=== PATIENT | male | born 1935 | race Caucasian/White ===

== ENCOUNTER 2016-06-10 17:19 | Inpatient (IN) | payer MEDICARE, BC ==
--- NOTE | 2016-06-10 17:52 | EDPRACDOC ---
- General Information Chief Complaint: Skin Cellulitis Stated Complaint: CELLULITIS Information Source: Patient Mode of Arrival:: Ambulance Home Medications: Home Medications Aspirin (Enteric Coated) [Ecotrin] 81 mg PO DAILY 06/10/16 Furosemide [Lasix] 20 mg PO DAILY 06/10/16 Meloxicam [Mobic] 7.5 mg PO DAILY 06/10/16 Tramadol HCl [Ultram] 50 mg PO Q4-6H PRN 06/10/16 Allergies/Adverse Reactions: Allergies Allergy/AdvReac Type Severity Reaction Status Date / Time Influenza Virus Vaccines Allergy Nausea/Vomi Verified 06/10/16 23:29 ting No Known Drug Allergies Allergy Unknown Verified 06/10/16 19:09 - History of Present Illness Onset: TWO DAYS HPI: C/o right leg swelling x 4 days, with redness and warmth x 2 days. NO apparent wound. Pt has hx of swelling lower ext, and takes lasix PRN, but has not been able to find them until this am. Took lasix this am unknown dose. Denies cp, sob , fever, change in urine or BM. Denies med hx other than removal of prostate. Urologist = Dr Esparza, PCP = Dr Riley. Location: Reports: Extremity (rt lower ext) Relevent History Of: Denies: None, O, Diabetes, Hydradenitis Suppurativa, Immunosuppression, IV Drug Use Prior Abscess: Denies: None, Same, Different, If Different Location, O Pain: Reports: Moderate Quality: Reports: Painful, Red. Denies: Draining Associated Signs & Symptoms: Reports: None - Treatment Prior to ED Arrival Reported Medications/Treatment CLINICAL QUALITY MANAGER EMS Treatment BLS IV Yes ED Past Medical History - History Reviewed Yes Nurses notes reviewed and agree except as marked EDM Review of Systems - Review of Systems ROS Negative Except as Marked: Yes All systems reviewed and were negative except as marked Musculoskeletal: Leg (rt lower leg pain swelling redness) Integumentary: Other (cellulitis rt lower leg) - Physical Exam Constitutional: No apparent distress, Alert Oriented to: Time, Person, Place Last recorded Vital Signs: Last Vital Signs Temp 98.1 F 06/10/16 17:38 Pulse 102 06/10/16 17:38 Resp 18 06/10/16 17:38 BP 179/89 06/10/16 17:38 Pulse Ox 97 06/10/16 17:38 Oxygen Pulse Oxygen Saturation 97 O2 Device Room Air Oxygen Flow Rate Fraction of Inspired Oxygen ( FIO2) - HEENT Head: Normal Eye Exam: negative: Conjunctival Injection, Scleral Icterus Oropharynx: negative: Drooling TMJ: Normal Nose: No Symptoms Reported Neck: Normal - Respiratory/Cardiovascular Respiratory: Normal - CTA Cardiovascular: Normal - GI Tenderness: Non tender - Musculoskeletal Back: Normal Extremities: Other (warm redness swelling rt lower ext) - Neurologic Mood Description: Normal Thought: Coherent - Results 06/10/16 18:25 06/10/16 18:25 - EKG EKG #1 EKG Time: 18:07 -: Yes EKG interpreted by me Rate: bpm: 94 Rhythm: NSR Block: None Hypertrophy: LVH ST: Normal - Diagnostic Imaging Leg Image interpreted by: Radiologist EXAM: RIGHT TIBIA AND FIBULA - 2 VIEW COMPARISON: None. FINDINGS: Two-view exam shows no fracture. No worrisome lytic or sclerotic osseous abnormality. Diffuse soft tissue edema is evident. Soft tissue calcification diffusely in the anterior leg is indeterminate. IMPRESSION: No acute bony findings. Electronically Signed By: Gonzalez Boyd M.D. On: 06/10/2016 19:16 Foot Image interpreted by: Radiologist EXAM: RIGHT FOOT COMPLETE - 3+ VIEW COMPARISON: None. FINDINGS: There is no evidence of acute fracture, subluxation or dislocation. Soft tissue swelling is noted. No radiographic evidence of osteomyelitis is noted. A calcaneal spur is identified. IMPRESSION: Soft tissue swelling without acute bony abnormality. Electronically Signed By: Cj Ulrich M.D. On: 06/10/2016 19:13 - Additional Information Additional Information: bilateral pedal pulses confirmed by doppler. - Departure Disposition: Admit IP To This Hospital Condition: Stable Final Diagnosis: Cellulitis Qualifiers: Site of cellulitis: extremity Site of cellulitis of extremity: lower extremity Laterality: right Qualified Code(s): L03.115 - Cellulitis of right lower limb Decision to Admit Time: 19:11 (Dr Fuchs) Decision to admit date: 06/10/16 Decision to admit: from ED
[2016-06-10 18:38] LABS: AUTOMATED BASOPHIL 0.3 % (0-2); AUTOMATED EOSINOPHIL 0.4 % (0-5); AUTOMATED LYMPH 8.6 % (17-44); AUTOMATED MONOCYTE 7.9 % (3-10); AUTOMATED NEUTROPHIL 82.8 % (45-76); MPV 8.4 fL (7.4-10.4)
[2016-06-10 18:49] LABS: BLOOD UREA NITROGEN 19 MG/DL (9-20); CALC CORRECTED 8.7 MG/DL (8.4-10.2); CALCIUM 8.6 MG/DL (8.4-10.2); CALCULATED OSMOLALITY 268 MOs/Kg (270-290); CHLORIDE 99 mEq/L (98-107); GLUCOSE 143 MG/DL (70-99); SODIUM LEVEL 137 mEq/L (137-146); TOTAL PROTEIN 7.3 G/DL (6.3-8.2)
--- NOTE | 2016-06-10 19:10 | HISTPHYS ---
- Chief Complaint redness and pain - History of Present Illness PRIMARY CARE PROVIDER: Dr. Riley HPI: The patient is an 80 yo man with chronic leg edema who presents with increased swelling in his right leg along with new redness and warmth. He was on a diuretic but he stopped taking it. Onset: redness and warmth of right leg x several days. Duration: constant. Location: lower aspect of right leg from knee to toes. Radiation: none. Character: redness, swelling, warmth, and pain. Alleviated by: Nothing. Exacerbated by: Nothing. Associated Symptoms: Shortness of breath. Wheezing is chronic. No coughing. Decreased PO intake x 1 week. Vomited x 1. Nausea. Mild abdominal pain in the lower abdomen, "gas pains", 3/10, no radiation. Constipation. Has bloody stool chronically from hemorrhoids. No weight gain. Does have leg swelling. Chills started 3 days ago. No fever. No diaphoresis. Had problem with his head and had difficulty with head feeling hot and needing a fan all the time; x years. Treatments: none at home except usual medications. - Medical History Cardiac History: Reports: Hypertension (usually not but sometimes; takes lasix for edema) Respiratory History: Reports: Other (Snores alot. Chronic shortness of breath of unknown etiology.) Musculoskeletal History: Reports: Arthritis Systemic History: Reports: Cancer (Prostate cancer.), Hypothyroidism (resolved) - Surgical History Reports: Other (Proststate, Dr. Earl Hill in [place] around 2010.) - Medictions/Allergies Current Medication List: Reviewed Home Medications Aspirin (Enteric Coated) [Ecotrin] 81 mg PO DAILY 06/10/16 Furosemide [Lasix] 20 mg PO DAILY 06/10/16 Meloxicam [Mobic] 7.5 mg PO DAILY 06/10/16 Tramadol HCl [Ultram] 50 mg PO Q4-6H PRN 06/10/16 - Family History Reports: Diabetes (MGM), Cardiac Disorders (Mother: CHF.), Other (Father 90yo bowel obstruction.) - Social History Travel Outside of [place] in the Last 3 Months?: No Lives: with Spouse Smoking Status: Never smoker Social History: Denies: Alcohol Use, Substance Use Disorder - Review of Systems GENERAL: Chills started 3 days ago. No Fever, or diaphoresis. Positive for fatigue/malaise. HEENT: No ear pain or discharge. No nasal discharge or bleeding. No throat pain or swelling. No eye pain or eye redness. RESPIRATORY: Shortness of breath. Wheezing is chronic. No coughing. CARDIOVASCULAR: No chest pain or palpitations. GI: Vomited x 1. Nausea. Mild abdominal pain in the lower abdomen, "gas pains", 3/10, no radiation. Constipation. Has bloody stool chronically from hemorrhoids. No diarrhea. NEUROLOGICAL: No headache or focal weakness. INTEGUMENT: Except per HPI, no rashes, itching, or lesions. LYMPHATIC SYSTEM: no lymph node swelling or pain. MUSCULOSKELETAL: Chronic back and joint pain, was worse starting 3 days ago; no new pain or joint swelling. GENITOURINARY: No dysuria or hematuria. ENDOCRINE: No polyuria or polydipsia. HEME: No chronic anemia, bleeding, or easy bruising. - Physical Exam Vital Signs: Initial Vitals Temperature 98.1 F 06/10/16 17:38 Pulse Rate 102 06/10/16 17:38 Respiratory Rate 18 06/10/16 17:38 Blood Pressure 179/89 06/10/16 17:38 Pulse Oxygen Saturation 97 06/10/16 17:38 Vital Signs - 24 hr 06/10/16 17:38 Temperature 98.1 F Pulse Rate 102 Respiratory 18 Rate Blood Pressure 179/89 Pulse Oxygen 97 Saturation Weight: 163.2 kg Height: 6 feet 3 inches BMI: 45 - Other Exam Other Exam Findings: GENERAL: Ill-appearing, obese, in acute distress. HEENT: Normocephalic, atraumatic; pupils equal and round. Nares patent, without discharge or bleeding. Severe rhinophyma. No oropharyngeal lesions or erythema. Mucous membranes are dry. NECK: is supple, no masses, trachea midline. Large neck circumference. RESPIRATORY: Clear to auscultation bilaterally. Chest wall movements are symmetric. No use of accessory muscles to breathe. No wheezing, rhonchi. Decreased breath sounds bilaterally. Faint rales. Mild tachypnea. CARDIOVASCULAR: Normal S1, S2. Murmur 2/6 systolic. No rubs, or gallops. PMI non -displaced. Carotids: no carotid bruits. No bradycardia or tachycardia. DP pulses 2+ bilaterally. GI: soft, nontender, non-distended, normal active bowel sounds. No hepatosplenomegaly. INTEGUMENT: Right lower extremity: from knee to toes: warmth, edema, erythema, and tenderness. No open wound or exudate. Otherwise clean, dry, and intact. MUSCULOSKELETAL: Moving all extremities. No cyanosis. No clubbing. Edema: 2-3+ pitting edema in the right lower extremity. 1+ pitting edema in the left lower extremity. NEUROLOGICAL: Cranial nerves 2-12 grossly intact. Motor 4/5 throughout. Reflexes : 2+ bilaterally. Babinski: toes downgoing bilaterally. Intact Finger to nose. Sensory grossly intact to light touch. Intact rapid alternating movements bilaterally. No pronator drift. PSYCHIATRIC: Fully oriented. Normal and appropriate affect. LYMPHATIC: No cervical lymphadenopathy. No supraclavicular lymphadenopathy. - Lab Results Laboratory Results - last 24 hr 06/10/16 06/10/16 18:25 18:25 WBC 13.2 H RBC 4.63 L Hgb 14.3 Hct 42.6 MCV 92 MCH 30.8 MCHC 33.5 RDW 12.9 Plt Count 164 MPV 8.4 Neut % (Auto) 82.8 H Lymph % (Auto) 8.6 L Payette % (Auto) 7.9 Eos % (Auto) 0.4 Baso % (Auto) 0.3 Absolute Neuts (auto) 10.82 H Absolute Lymphs (auto) 1.06 Sodium 137 Potassium 4.0 Chloride 99 Carbon Dioxide 28 Anion Gap 14 BUN 19 Creatinine 1.10 Estimated GFR (MDRD) > 60 Glucose 143 H Calculated Osmolality 268 L Calcium 8.6 Corrected Calcium 8.7 Total Bilirubin 1.4 H AST 43 ALT 52 Alkaline Phosphatase 58 [id number] Pept 1270 Total Protein 7.3 Albumin 3.9 - Diagnostic Findings EK bpm. Normal sinus rhythm. Left ventricular hypertrophy with repolarization abnormality. T wave inversion in 1. Flat T wave in V2. Reviewed EKG personally. EXAM: RIGHT FOOT COMPLETE - 3+ VIEW COMPARISON: None. FINDINGS: There is no evidence of acute fracture, subluxation or dislocation. Soft tissue swelling is noted. No radiographic evidence of osteomyelitis is noted. A calcaneal spur is identified. IMPRESSION: Soft tissue swelling without acute bony abnormality. RIGHT TIBIA AND FIBULA - 2 VIEW COMPARISON: None. FINDINGS: Two-view exam shows no fracture. No worrisome lytic or sclerotic osseous abnormality. Diffuse soft tissue edema is evident. Soft tissue calcification diffusely in the anterior leg is indeterminate. IMPRESSION: No acute bony findings. EXAM: PORTABLE CHEST 1 VIEW COMPARISON: None. FINDINGS: The lungs are well-aerated. Minimal bilateral atelectasis is noted. There is no evidence of pleural effusion or pneumothorax. The cardiomediastinal silhouette is within normal limits. No acute osseous abnormalities are seen. IMPRESSION: Minimal bilateral atelectasis noted. Lungs otherwise clear. EXAM: RIGHT LOWER EXTREMITY VENOUS DOPPLER ULTRASOUND TECHNIQUE: [place]-scale sonography with graded compression, as well as color Doppler and duplex ultrasound were performed to evaluate the lower extremity deep venous systems from the level of the common femoral vein and including the common femoral, femoral, profunda femoral, popliteal and calf veins including the posterior tibial, peroneal and gastrocnemius veins when visible. The superficial great saphenous vein was also interrogated. Spectral Doppler was utilized to evaluate flow at rest and with distal augmentation maneuvers in the common femoral, femoral and popliteal veins. COMPARISON: None. FINDINGS: Contralateral Common Femoral Vein: Respiratory phasicity is normal and symmetric with the symptomatic side. No evidence of thrombus. Normal compressibility. Common Femoral Vein: No evidence of thrombus. Normal compressibility, respiratory phasicity and response to augmentation. Saphenofemoral Junction: No evidence of thrombus. Normal compressibility and flow on color Doppler imaging. Profunda Femoral Vein: No evidence of thrombus. Normal compressibility and flow on color Doppler imaging. Femoral Vein: No evidence of thrombus. Normal compressibility, respiratory phasicity and response to augmentation. Popliteal Vein: No evidence of thrombus. Normal compressibility, respiratory phasicity and response to augmentation. Calf Veins: No evidence of thrombus. Normal compressibility and flow on color Doppler imaging. The peroneal vein is not visualized. Superficial Great Saphenous Vein: No evidence of thrombus. Normal compressibility and flow on color Doppler imaging. Venous Reflux: None. Other Findings: None. IMPRESSION: No evidence of deep venous thrombosis. - Assessment (1) Cellulitis of right leg L03.115 - CELLULITIS OF RIGHT LOWER LIMB Acute Present on Admission: Yes Plan: Cultures. IV vancomycin. (2) Peripheral edema R60.9 - EDEMA, UNSPECIFIED Acute Present on Admission: Yes Bilateral lower extremity edema, right greater than left. Plan: Ordered US to rule out DVT (result: negative). Suspect bilateral edema could be related to CHF, but patient denies history of CHF. Recommend further workup as an outpatient. Consider Lasix. (3) Hypertensive urgency I16.0 - HYPERTENSIVE URGENCY Acute Present on Admission: Yes Patient reports he does not take blood pressure medications except occasional Lasix. Blood pressure considerably elevated on admission. Plan: Lasix. Add additional medication. Will need follow up with primary care physician for recheck and further evaluation. (4) Elevated serum glucose R73.9 - HYPERGLYCEMIA, UNSPECIFIED Acute Present on Admission: Yes Patient denies history of diabetes. Initial glucose slightly elevated but was not fasting. Plan: Check fasting glucose. - Plan Patient has a history of snoring. Strongly suspect he has obstructive sleep apnea. Recommended that patient follow up with his primary care doctor to see if he would benefit from a sleep study. Case Care Discussed with: Patient, Family, Nursing Staff
--- NOTE | 2016-06-10 19:16 | DIRPT ---
CLINICAL DATA: 80-year-old male with right foot pain and swelling for 2 days. EXAM: RIGHT FOOT COMPLETE - 3+ VIEW COMPARISON: None. FINDINGS: There is no evidence of acute fracture, subluxation or dislocation. Soft tissue swelling is noted. No radiographic evidence of osteomyelitis is noted. A calcaneal spur is identified. IMPRESSION: Soft tissue swelling without acute bony abnormality. Electronically Signed By: Cj Ulrich M.D. On: 06/10/2016 19:13
--- NOTE | 2016-06-10 19:19 | DIRPT ---
CLINICAL DATA: Initial encounter for leg swelling and redness without known injury. EXAM: RIGHT TIBIA AND FIBULA - 2 VIEW COMPARISON: None. FINDINGS: Two-view exam shows no fracture. No worrisome lytic or sclerotic osseous abnormality. Diffuse soft tissue edema is evident. Soft tissue calcification diffusely in the anterior leg is indeterminate. IMPRESSION: No acute bony findings. Electronically Signed By: Gonzalez Boyd M.D. On: 06/10/2016 19:16
[2016-06-10] MEDS ORDERED: MORPHINE 2 MG/ML INJECTION IV PRN (21:25)
[2016-06-10] MEDS ORDERED: BISACODYL 5 MG TAB PO PRN (22:45)
[2016-06-10] MEDS ORDERED: GUAIFEN 100 MG-DEXTROMETH 10 MG PER 5 ML PO PRN (22:45)
[2016-06-10] MEDS ORDERED: ACETAMINOPHEN 325 MG/TAB TABLET PO PRN (22:45)
[2016-06-10] MEDS ORDERED: TEMAZEPAM 15 MG CAP PO PRN (22:45)
[2016-06-10] MEDS ORDERED: Docusate Sodium 100 MG CAP PO PRN (22:45)
[2016-06-10] MEDS ORDERED: ACETAMINOPHEN 325 MG SUPP PR PRN (22:45)
[2016-06-10] MEDS ORDERED: BENZONATATE 100 MG PERLES PO PRN (22:45)
[2016-06-10] MEDS ORDERED: ONDANSETRON HCL 4 MG/2 ML VIAL IV PRN (22:45)
[2016-06-10] MEDS ORDERED: SENNA CONCENTRATE TAB PO PRN (22:45)
[2016-06-10] MEDS ORDERED: SIMETHICONE 80 MG TAB PO PRN (22:45)
[2016-06-10] MEDS ORDERED: PROMETHAZINE 25 MG/ML VIAL IV PRN (22:45)
[2016-06-10] MEDS ORDERED: ENOXAPARIN 40 MG/0.4 ML PFS SQ SCH (23:00)
[2016-06-10] MEDS ORDERED: Vaccine Screening Complete SCH (23:00)
--- NOTE | 2016-06-10 23:32 | DIRPT ---
CLINICAL DATA: Acute onset of right leg swelling, erythema and pain. Initial encounter. EXAM: RIGHT LOWER EXTREMITY VENOUS DOPPLER ULTRASOUND TECHNIQUE: [place]-scale sonography with graded compression, as well as color Doppler and duplex ultrasound were performed to evaluate the lower extremity deep venous systems from the level of the common femoral vein and including the common femoral, femoral, profunda femoral, popliteal and calf veins including the posterior tibial, peroneal and gastrocnemius veins when visible. The superficial great saphenous vein was also interrogated. Spectral Doppler was utilized to evaluate flow at rest and with distal augmentation maneuvers in the common femoral, femoral and popliteal veins. COMPARISON: None. FINDINGS: Contralateral Common Femoral Vein: Respiratory phasicity is normal and symmetric with the symptomatic side. No evidence of thrombus. Normal compressibility. Common Femoral Vein: No evidence of thrombus. Normal compressibility, respiratory phasicity and response to augmentation. Saphenofemoral Junction: No evidence of thrombus. Normal compressibility and flow on color Doppler imaging. Profunda Femoral Vein: No evidence of thrombus. Normal compressibility and flow on color Doppler imaging. Femoral Vein: No evidence of thrombus. Normal compressibility, respiratory phasicity and response to augmentation. Popliteal Vein: No evidence of thrombus. Normal compressibility, respiratory phasicity and response to augmentation. Calf Veins: No evidence of thrombus. Normal compressibility and flow on color Doppler imaging. The peroneal vein is not visualized. Superficial Great Saphenous Vein: No evidence of thrombus. Normal compressibility and flow on color Doppler imaging. Venous Reflux: None. Other Findings: None. IMPRESSION: No evidence of deep venous thrombosis. Electronically Signed By: Ej Muller M.D. On: 06/10/2016 23:29
--- NOTE | 2016-06-11 00:13 | DIRPT ---
CLINICAL DATA: Acute onset of shortness of breath and wheezing. Lower extremity edema and cellulitis. Initial encounter. EXAM: PORTABLE CHEST 1 VIEW COMPARISON: None. FINDINGS: The lungs are well-aerated. Minimal bilateral atelectasis is noted. There is no evidence of pleural effusion or pneumothorax. The cardiomediastinal silhouette is within normal limits. No acute osseous abnormalities are seen. IMPRESSION: Minimal bilateral atelectasis noted. Lungs otherwise clear. Electronically Signed By: Ej Muller M.D. On: 06/11/2016 00:10
[2016-06-11] MEDS: TRAMADOL HCL 50 MG TAB PO PRN (00:26)
[2016-06-11] MEDS: CARVEDILOL 3.125 MG TAB PO SCH ×3 (00:26→19:46)
[2016-06-11] MEDS: ENOXAPARIN 100 MG PFS SQ SCH ×2 (00:27→19:46)
[2016-06-11 03:20] LABS: MPV 9.2 fL (7.4-10.4)
[2016-06-11 03:32] LABS: BLOOD UREA NITROGEN 17 MG/DL (9-20); CALCIUM 8.2 MG/DL (8.4-10.2); CALCULATED OSMOLALITY 261 MOs/Kg (270-290); CHLORIDE 98 mEq/L (98-107); GLUCOSE 121 MG/DL (70-99); SODIUM LEVEL 134 mEq/L (137-146); TOTAL PROTEIN 5.9 G/DL (6.3-8.2)
[2016-06-11] MEDS ORDERED: Vancomycin HCl 0 MG in D5W 500 ML IV SCH (08:00)
[2016-06-11] MEDS: FUROSEMIDE 20 MG TAB PO SCH (08:55)
--- NOTE | 2016-06-11 13:04 | GENMEDPROG ---
Chief Complaint: Feels some better today. Still significant swelling and inflammation of his right foot though he states that this is improved from yesterday. Notes Reviewed: Yes Events from last night noted and discussed with Clinical Staff Current Medication List: Reviewed Currently: Denies: Cough, Wheezing, MORENO, SOB, Nausea and Vomiting, Abdominal Pain, Chest Pain - Physical Examination Vital Signs and I&O: Last Vital Signs Temp 98.0 F 06/11/16 11:37 Pulse 77 06/11/16 11:58 Resp 13 06/11/16 11:37 BP 142/74 06/11/16 11:37 Pulse Ox 99 06/11/16 11:37 Oxygen Pulse Oxygen Saturation 99 O2 Device Room Air Oxygen Flow Rate Fraction of Inspired Oxygen ( FIO2) Intake & Output 06/08/16 06/09/16 06/10/16 06/11/16 23:59 23:59 23:59 23:59 Intake Total 475 100 Balance 475 100 Patient's weight 168.283 kg General: Alert, Oriented x3, Cooperative HEENT: Normal, PERRLA, EOMI, Anicteric Sclera Neck: Non-tender, Full range of motion, Normal Trachea alignment, Normal inspection. negative: JVD Lymphatics: Normal Respiratory: Normal - CTA, Accessory Muscle Use Cardiovascular: Regular rate and rhythm, No Gallops,Rubs/Murmurs GI: Normal bowel sounds, Soft, Non tender, No hepatospenomegaly Extremities/Musculoskeletal: Tenderness, Swelling, Edema Skin: Warm,Dry and Intact, Erythema, Warmth Neurological: Normal speech, Strength at 5/5 X4 ext, Normal tone, Cranial nerves 3-12 NL Psych/Mental Status: Appropriate, Normal Affect, Cooperative Lab/DI/Studies Reviewed: Laboratory Results - last 24 hr 06/10/16 06/10/16 06/10/16 18:25 18:25 23:25 WBC 13.2 H RBC 4.63 L Hgb 14.3 Hct 42.6 MCV 92 MCH 30.8 MCHC 33.5 RDW 12.9 Plt Count 164 MPV 8.4 Neut % (Auto) 82.8 H Lymph % (Auto) 8.6 L Starke % (Auto) 7.9 Eos % (Auto) 0.4 Baso % (Auto) 0.3 Absolute Neuts (auto) 10.82 H Absolute Lymphs (auto) 1.06 Sodium 137 Potassium 4.0 Chloride 99 Carbon Dioxide 28 Anion Gap 14 BUN 19 Creatinine 1.10 Estimated GFR (MDRD) > 60 Glucose 143 H Calculated Osmolality 268 L Lactic Acid 1.4 Calcium 8.6 Corrected Calcium 8.7 Total Bilirubin 1.4 H AST 43 ALT 52 Alkaline Phosphatase 58 [id number] Pept 1270 Total Protein 7.3 Albumin 3.9 TSH 06/10/16 06/11/16 06/11/16 23:25 02:30 02:30 WBC 12.9 H RBC 4.30 L Hgb 13.2 L Hct 39.6 L MCV 92 MCH 30.7 MCHC 33.4 RDW 12.7 Plt Count 168 MPV 9.2 Neut % (Auto) Lymph % (Auto) Starke % (Auto) Eos % (Auto) Baso % (Auto) Absolute Neuts (auto) Absolute Lymphs (auto) Sodium 134 L Potassium 4.2 Chloride 98 Carbon Dioxide 28 Anion Gap 12 BUN 17 Creatinine 1.00 Estimated GFR (MDRD) > 60 Glucose 121 H Calculated Osmolality 261 L Lactic Acid Calcium 8.2 L Corrected Calcium 9.0 Total Bilirubin 1.3 AST 42 ALT 56 Alkaline Phosphatase 56 Gpy-U-Somnwvebzuj Pept Total Protein 5.9 L Albumin 3.2 L TSH 3.71 - Assessment (1) Cellulitis of right leg Acute L03.115 - CELLULITIS OF RIGHT LOWER LIMB Comment/Plan: Continue IV vancomycin and supportive care. Some better today. Leg elevation as much as possible. (2) Elevated serum glucose Acute R73.9 - HYPERGLYCEMIA, UNSPECIFIED Comment/Plan: Accu-Cheks and sliding scale insulin (3) Hypertensive urgency Acute I16.0 - HYPERTENSIVE URGENCY Comment/Plan: Continue medications and monitor. Control pain. (4) Peripheral edema Acute R60.9 - EDEMA, UNSPECIFIED Comment/Plan: Moderate. Much worse on the right than on the left. Leg elevation as much as possible Case Care Discussed with: Patient, Nursing Staff, Physical Therapy, Resource Management, Knife Cutter
[2016-06-12 04:24] VITALS: BMI 46.7
[2016-06-12 08:10] LABS: MPV 8.5 fL (7.4-10.4)
[2016-06-12 08:14] LABS: BLOOD UREA NITROGEN 16 MG/DL (9-20); CALCIUM 8.6 MG/DL (8.4-10.2); CALCULATED OSMOLALITY 266 MOs/Kg (270-290); CHLORIDE 97 mEq/L (98-107); GLUCOSE 119 MG/DL (70-99); SODIUM LEVEL 137 mEq/L (137-146)
[2016-06-12] MEDS: CARVEDILOL 3.125 MG TAB PO SCH ×2 (08:36→21:09)
[2016-06-12] MEDS: FUROSEMIDE 20 MG TAB PO SCH (08:36)
[2016-06-12] MEDS: TRAMADOL HCL 50 MG TAB PO PRN (11:08)
--- NOTE | 2016-06-12 13:04 | GENMEDPROG ---
Chief Complaint: Still with moderate swelling and erythema. However much improved tenderness and warmth Notes Reviewed: Yes Events from last night noted and discussed with Clinical Staff Current Medication List: Reviewed Currently: Denies: Cough, Wheezing, MORENO, SOB, Nausea and Vomiting, Abdominal Pain, Chest Pain - Physical Examination Vital Signs and I&O: Last Vital Signs Temp 98.2 F 06/12/16 11:04 Pulse 79 06/12/16 11:04 Resp 18 06/12/16 11:04 BP 117/49 L 06/12/16 11:04 Pulse Ox 92 06/12/16 11:04 Oxygen Pulse Oxygen Saturation 92 O2 Device Room Air Oxygen Flow Rate Fraction of Inspired Oxygen ( FIO2) Intake & Output 06/09/16 06/10/16 06/11/16 06/12/16 23:59 23:59 23:59 23:59 Intake Total 475 1051 764 Output Total 1225 Balance 475 -174 764 Patient's weight 168.283 kg 169.462 kg General: Alert, Oriented x3, Cooperative HEENT: Normal, PERRLA, EOMI, Anicteric Sclera Neck: Non-tender, Full range of motion, Normal Trachea alignment, Normal inspection. negative: JVD Lymphatics: Normal Respiratory: Normal - CTA, Accessory Muscle Use Cardiovascular: Regular rate and rhythm, No Gallops,Rubs/Murmurs GI: Normal bowel sounds, Soft, Non tender, No hepatospenomegaly Extremities/Musculoskeletal: Tenderness, Swelling, Edema Skin: Warm,Dry and Intact, Erythema, Warmth Neurological: Normal speech, Strength at 5/5 X4 ext, Normal tone, Cranial nerves 3-12 NL Psych/Mental Status: Appropriate, Normal Affect, Cooperative Lab/DI/Studies Reviewed: Laboratory Results - last 24 hr 06/12/16 06/12/16 07:16 07:16 WBC 13.4 H RBC 4.68 L Hgb 14.5 Hct 43.2 MCV 92 MCH 31.0 MCHC 33.6 RDW 12.8 Plt Count 221 MPV 8.5 Sodium 137 Potassium 3.9 Chloride 97 L Carbon Dioxide 28 Anion Gap 16 BUN 16 Creatinine 1.00 Estimated GFR (MDRD) > 60 Glucose 119 H Calculated Osmolality 266 L Calcium 8.6 Vancomycin Trough 16.5 - Assessment (1) Cellulitis of right leg Acute L03.115 - CELLULITIS OF RIGHT LOWER LIMB Comment/Plan: Continue IV vancomycin and supportive care. Slowly improving. Continue IV antibiotics and leg elevation. (2) Elevated serum glucose Acute R73.9 - HYPERGLYCEMIA, UNSPECIFIED Comment/Plan: Blood sugars stable. Hold on Accu-Cheks and sliding scale insulin (3) Hypertensive urgency Acute I16.0 - HYPERTENSIVE URGENCY Comment/Plan: Continue medications and monitor. Control pain. (4) Peripheral edema Acute R60.9 - EDEMA, UNSPECIFIED Comment/Plan: Some better today. Continue to monitor.
[2016-06-12] MEDS: ENOXAPARIN 100 MG PFS SQ SCH (17:50)
[2016-06-13 07:31] LABS: AUTOMATED BASOPHIL 0.2 % (0-2); AUTOMATED EOSINOPHIL 1.5 % (0-5); AUTOMATED LYMPH 11.7 % (17-44); AUTOMATED MONOCYTE 8.9 % (3-10); AUTOMATED NEUTROPHIL 77.7 % (45-76); MPV 8.7 fL (7.4-10.4)
[2016-06-13 07:47] LABS: BLOOD UREA NITROGEN 16 MG/DL (9-20); CALCIUM 8.2 MG/DL (8.4-10.2); CALCULATED OSMOLALITY 266 MOs/Kg (270-290); CHLORIDE 100 mEq/L (98-107); GLUCOSE 148 MG/DL (70-99); SODIUM LEVEL 136 mEq/L (137-146)
[2016-06-13] MEDS: FUROSEMIDE 20 MG TAB PO SCH (09:28)
[2016-06-13] MEDS: CARVEDILOL 3.125 MG TAB PO SCH ×2 (09:28→20:12)
--- NOTE | 2016-06-13 13:52 | GENMEDPROG ---
Chief Complaint: Slowly improving. Less pain and tenderness. Still with moderate erythema. No other complaints. Notes Reviewed: Yes Events from last night noted and discussed with Clinical Staff Current Medication List: Reviewed Currently: Denies: Cough, Wheezing, MORENO, SOB, Nausea and Vomiting, Abdominal Pain, Chest Pain - Physical Examination Vital Signs and I&O: Last Vital Signs Temp 97.9 F 06/13/16 13:41 Pulse 74 06/13/16 13:41 Resp 25 H 06/13/16 13:41 BP 131/61 06/13/16 13:41 Pulse Ox 94 06/13/16 13:41 Oxygen Pulse Oxygen Saturation 94 O2 Device Room Air Oxygen Flow Rate Fraction of Inspired Oxygen ( FIO2) Intake & Output 06/10/16 06/11/16 06/12/16 06/13/16 23:59 23:59 23:59 23:59 Intake Total 475 1051 2398 400 Output Total 1225 Balance 475 -174 2398 400 Patient's weight 168.283 kg 169.462 kg 168.328 kg General: Alert, Oriented x3, Cooperative, Well appearing, Well nourished, Obese HEENT: Normal, PERRLA, EOMI, Anicteric Sclera Neck: Non-tender, Full range of motion, Normal Trachea alignment, Normal inspection. negative: JVD Lymphatics: Normal Respiratory: Normal - CTA, Accessory Muscle Use Cardiovascular: Regular rate and rhythm, No Gallops,Rubs/Murmurs GI: Normal bowel sounds, Soft, Non tender, No hepatospenomegaly Extremities/Musculoskeletal: Tenderness, Swelling, Edema Skin: Warm,Dry and Intact, Erythema, Warmth Neurological: Normal speech, Strength at 5/5 X4 ext, Normal tone, Cranial nerves 3-12 NL Psych/Mental Status: Appropriate, Normal Affect, Cooperative Lab/DI/Studies Reviewed: Laboratory Results - last 24 hr 06/13/16 06/13/16 06:55 06:55 WBC 11.0 H RBC 4.07 L Hgb 12.6 L D Hct 37.3 L MCV 92 MCH 31.0 MCHC 33.8 RDW 12.5 Plt Count 198 MPV 8.7 Neut % (Auto) 77.7 H Lymph % (Auto) 11.7 L [place] % (Auto) 8.9 Eos % (Auto) 1.5 Baso % (Auto) 0.2 Absolute Neuts (auto) 8.47 H Absolute Lymphs (auto) 1.21 Sodium 136 L Potassium 3.9 Chloride 100 Carbon Dioxide 28 Anion Gap 12 BUN 16 Creatinine 1.00 Estimated GFR (MDRD) > 60 Glucose 148 H Calculated Osmolality 266 L Calcium 8.2 L - Assessment (1) Cellulitis of right leg Acute L03.115 - CELLULITIS OF RIGHT LOWER LIMB Comment/Plan: Steadily better. Less swelling but still with moderate erythema. Continue IV antibiotics and leg elevation. (2) Elevated serum glucose Acute R73.9 - HYPERGLYCEMIA, UNSPECIFIED Comment/Plan: Blood sugars stable. Hold on Accu-Cheks and sliding scale insulin (3) Hypertensive urgency Acute I16.0 - HYPERTENSIVE URGENCY Comment/Plan: Continue medications and monitor. Control pain. (4) Peripheral edema Acute R60.9 - EDEMA, UNSPECIFIED Comment/Plan: Some better today. Continue to monitor. Case Care Discussed with: Patient
[2016-06-13] MEDS: ENOXAPARIN 100 MG PFS SQ SCH (17:35)
[2016-06-14 06:02] VITALS: BP 160/78; PULSE 80; TEMP 97.8
[2016-06-14] MEDS: CARVEDILOL 3.125 MG TAB PO SCH (08:54)
[2016-06-14] MEDS: FUROSEMIDE 20 MG TAB PO SCH (08:54)
--- NOTE | 2016-06-14 10:13 | PCM.DCS92 ---
- Final/Secondary Discharge Diagnosis (1) Cellulitis of right leg Acute L03.115 - CELLULITIS OF RIGHT LOWER LIMB Present on Admission: Yes Comment: Overall much improved. Requests discharge home. Still with some swelling and mild erythema but no longer tender but no significant warmth. (2) Elevated serum glucose Acute R73.9 - HYPERGLYCEMIA, UNSPECIFIED Present on Admission: Yes Comment: Blood sugars stable. Hold on Accu-Cheks and sliding scale insulin (3) Hypertensive urgency Acute I16.0 - HYPERTENSIVE URGENCY Present on Admission: Yes Comment: Continue medications and monitor. Control pain. (4) Peripheral edema Acute R60.9 - EDEMA, UNSPECIFIED Present on Admission: Yes Comment: Some better today. Continue to monitor. Discharge Disposition: Home Discharge Condition: Improved Cognitive Discharge Status: Unimpaired Fuctional Discharge Status: Independent Physician Follow up/Referrals: Padmaja Riley MD [Primary Care Provider] - 06/21/16 10:00 am New Prescriptions: Clindamycin HCl [Cleocin HCl] 300 mg PO BID #14 capsule Probiotic Blend [Neela Q] 1 tab PO DAILY #14 tab Discharge Home Medication List Aspirin (Enteric Coated) [Halfprin] 81 mg PO DAILY 06/10/16 [History Confirmed 06/10/16 Last Taken 06/10/16] Furosemide [Lasix] 20 mg PO DAILY 06/10/16 [History Confirmed 06/10/16 Last Taken 06/10/16] Meloxicam [Mobic] 7.5 mg PO DAILY 06/10/16 [History Confirmed 06/10/16 Last Taken 06/10/16] Tramadol HCl [Ultram] 50 mg PO Q4-6H PRN 06/10/16 [History Confirmed 06/10/16 Last Taken 06/10/16] Clindamycin HCl [Cleocin HCl] 300 mg PO BID #14 capsule 06/14/16 [Rx Last Taken Unknown] Probiotic Blend [Neela Q] 1 tab PO DAILY #14 tab 06/14/16 [Rx Last Taken Unknown ] O2 Device: Room Air Additional Instructions: encourage use of compression stocking or adry wraps to keep swelling and stasis under control Diet at Discharge: Heart Healthy Activity: As Tolerated Call Office For: Worsening Symptoms - DC Summary Notes Hospital Course Note:: Discharge summary on patient named JET YESENIA VAZQUEZ FONSECA admitted to [facility] on 06/10/16 by David Fuchs MD. Date of discharge is []. Mr. Alexander is a pleasant 80-year-old white male with a history of obesity a peripheral arterial disease who presented to the emergency room with complaint of increasing pain swelling and edema of his right lower extremity he states that he had been on a diuretic previously but this was discontinued approximately a month prior to hospitalization. In the emergency room he was found to have significant edema and cellulitis of his right lower extremity. There is erythema to mid lower leg. He was admitted to the hospital started on IV antibiotics. Swelling has improved significantly. Erythema has retracted significantly as well though still persists over the dorsum of his foot. His leg is no longer tender and he is able to bear weight without any difficulty. Is no longer hot to touch. At this point his white count is down to normal and he is improving. He requests that we try to manage this as outpatient and at this point I feel that with stable vitals, stable white blood cell count and improving cellulitis we can manage this further as an outpatient. I did tell that he would need to follow up closely with his primary physician in the next 3 -4 days. Total Time: 50 minutes - Physical Exam Vital Signs: Last Vital Signs Temp 97.8 F 06/14/16 06:02 Pulse 80 06/14/16 06:02 Resp 20 06/14/16 06:02 BP 160/78 06/14/16 06:02 Pulse Ox 97 06/14/16 06:02 Oxygen Pulse Oxygen Saturation 97 O2 Device Room Air Oxygen Flow Rate Fraction of Inspired Oxygen ( FIO2) Constitutional: No apparent distress, Alert, Well nourished, Well appearing Oriented to: Time, Person, Place - HEENT Head: Normal Eye: negative: Conjunctival Injection, Scleral Icterus Oropharynx: negative: Drooling TMJ: Normal Nose: No Symptoms Reported - Respiratory/Cardiovascular Respiratory: Normal - CTA, Accessory Muscle Use Cardiovascular: Normal - GI Auscultation: Normal Palpation: Normal Tenderness: Non tender - Musculoskeletal Back: Normal Extremities: Other (mild swelling and erythema, much improved, no warmth) - Integumentary Skin: Other (cellulitis much improved) Lymphatics: Normal - Neurologic Memory Impaired: Normal Motor Function: Normal Cranial Nerve: Normal Cerebellar: Normal Mood Description: Normal Thought: Coherent Perception: Normal
== END 2016-06-14 11:35 | disposition home or self-care (01) | DRG 603 ==
LOC: ED 17:19 → PCU 21:22 → MPS3 06-12 10:02
PROVIDERS: ADMIT Internal Medicine; ATTEND Hospitalist
DX: L03.115 Cellulitis of right lower limb (principal); R60.9 Edema, unspecified; I16.0 Hypertensive urgency; R73.9 Hyperglycemia, unspecified; Z79.82 Long term (current) use of aspirin; Z79.899 Other long term (current) drug therapy
CPT/HCPCS: 36415; 71010; 80048; 80053; 80202; 83605; 83880; 84443; 85025; 85027; 87040; 93005; 96365; 96366; 96372; 99284; G0237; J1650; J2270; J3370; J3490; J7060